=== PATIENT | male | born 1960 | race Caucasian/White ===

== ENCOUNTER 2023-03-21 10:38 | Emergency (ER) | payer BC, SELFPAY ==
[2023-03-21 10:50] VITALS: BP 123/85; PULSE 76; RESP 20; TEMP 36.8; O2SAT 98; BMI 32.6
--- NOTE | 2023-03-21 11:38 | CT_ITS ---
[address] [place], [place] [address] Patient Name: SHON SEO MRN: [id number] date: 1960 Sex: M Assigned Patient Location: ED.MAIN Current Patient Location: Accession/Order Number: [id number] Exam Date: 03/21/2023 12:37 Report Date: 03/21/2023 13:08 At the request of: LAURO ESTEBAN Procedure: CT abdomen pelvis w con EXAM: CT abdomen pelvis w con HISTORY: LUQ pain COMPARISON: None. TECHNIQUE: Axial CT imaging was performed through the abdomen and pelvis with intravenous contrast. Multiplanar reformats were performed. Dose reduction techniques were achieved by using automated exposure control and/or adjustment of mA and/or kV according to patient size and/or use of iterative reconstruction technique. FINDINGS: Lung bases: Lung bases are clear. No pleural effusion. GI upper: Small hiatal hernia. Liver: Normal size and contour. Gallbladder: No significant abnormality. No cholelithiasis. Biliary system: No intra or extrahepatic biliary ductal dilatation. Spleen: Normal size. Pancreas: Unremarkable. Adrenal glands: Normal adrenal glands. Kidneys/ureters: Normal contours. No hydronephrosis. No nephrolithiasis or ureterolithiasis. Mild bilateral perirenal fat stranding, nonspecific and can be due to infection/inflammation. Correlation with urinalysis is recommended. Vessels: No aneurysm. Lymph Nodes: No lymphadenopathy. Small bowel: No wall thickening or dilatation. Colon: No wall thickening or dilatation. Constipation. Appendix: No findings of appendicitis. Peritoneal cavity: No free fluid or pneumoperitoneum. Lower : Prostatomegaly. Correlation with PSA is recommended. The urinary bladder is unremarkable. Bones: No acute bony abnormality. Soft tissues: Small bilateral fat-containing inguinal hernia Additional findings: None. CT/CT abdomen pelvis w con IMPRESSION: Mild hiatal hernia. Mild bilateral perirenal fat stranding, nonspecific and can be due to infection/inflammation. Correlation with urinalysis is recommended. Electronically authenticated by: THERON RAMIREZ Date: 03/21/2023 13:08
--- NOTE | 2023-03-21 11:38 | ED.ABDPAIN1 ---
HPI - Abdominal Pain General Chief Complaint: Abdominal Pain Stated Complaint: ABDOMINAL PAIN Time Seen by Provider: 03/21/23 11:34 Source: patient Mode of arrival: walk-in Limitations: no limitations History of Present Illness HPI narrative: 63-year-old male presents for abdominal pain. It's in the left upper quadrant and he has not had nausea vomiting diarrhea or constipation. No fever. It started today. He had CABG about four weeks ago. No chest pain shortness of breath or back pain. Related Data Allergies Allergy/AdvReac Type Severity Reaction Status Date / Time No Known Drug Allergies Allergy Verified 03/21/23 10:50 Review of Systems ROS Narrative A ten point review of systems is negative except as noted above. PFSH PFSH Social History Smoking status: Light tobacco smoker Exam Narrative Exam Narrative: Nurses note and vital signs reviewed and patient is not hypoxic. General: The patient appears well and in no apparent distress. Patient is resting comfortably on cart. Skin: Warm, dry, no pallor noted. There is no rash noted. Head: Normocephalic, atraumatic Eye: Normal conjunctiva, no drainage Ears, Nose, Mouth, and Throat: oral mucosa is moist. Nares patent. Cardiovascular: Regular Rate and Rhythm Respiratory: Patient is in no distress, no accessory muscle use, lungs are clear to auscultation, no wheezing, rales or rhonchi Back: non-tender GI: Normal bowel sounds, no tenderness to palpation, no masses appreciated. No rebound, guarding, or rigidity noted. Musculoskeletal: The patient has no evidence of calf tenderness, no pitting edema, symmetrical pulses noted bilaterally Neurological: A&O, normal speech Psychiatric: Cooperative Constitutional Vital Signs, click to edit/add: Last Vital Signs Temp 98.3 F 03/21/23 10:50 Pulse 76 03/21/23 10:50 Resp 20 03/21/23 10:50 BP 123/85 03/21/23 10:50 Pulse Ox 98 03/21/23 10:50 O2 Del Method Room Air 03/21/23 10:50 Course Vital Signs Vital signs: Vital Signs Temperature 98.3 F 03/21/23 10:50 Pulse Rate 76 03/21/23 10:50 Respiratory Rate 20 03/21/23 10:50 Blood Pressure 123/85 03/21/23 10:50 Pulse Oximetry 98 03/21/23 10:50 Oxygen Delivery Method Room Air 03/21/23 10:50 Temperature 98.3 F 03/21/23 10:50 Pulse Rate 76 03/21/23 10:50 Respiratory Rate 20 03/21/23 10:50 Blood Pressure 123/85 03/21/23 10:50 Pulse Oximetry 98 03/21/23 10:50 Oxygen Delivery Method Room Air 03/21/23 10:50 MDM - Abdominal Pain MDM Narrative Medical decision making narrative: his workup including CAT scan abdomen is negative and he is able to be discharged home. Treatment diagnosis and follow-up were discussed with the patient. Differential Diagnosis Differential diagnosis: Likely abdominal pain and other (constipation, muscle strain) Lab Data Attestation: I reviewed the patient's lab results. Labs: Lab Results 03/21/23 Range/Units 11:45 WBC 8.5 (4.0-11.0) 10^3/uL RBC 4.55 L (4.70-6.10) 10^6/uL Hgb 13.2 L (14.0-18.0) g/dL Hct 41.4 L (42.0-54.0) % MCV 91.0 (80.0-94.0) fL MCH 29.0 (25.9-34.0) pg MCHC 31.9 (29.9-35.2) g/dL RDW 15.8 H (11.0-15.0) % Plt Count 233 (150-450) 10^3/uL MPV 10.0 (9.5-13.5) fL Neut % (Auto) 60.2 (43.0-75.0) % Lymph % (Auto) 20.6 (20.5-60.0) % [place] % (Auto) 9.5 (1.7-12.0) % Eos % (Auto) 8.8 H (0.9-7.0) % Baso % (Auto) 0.7 (0.2-2.0) % Neut # (Auto) 5.1 (1.4-6.5) 10^3/uL Lymph # (Auto) 1.8 (1.2-3.8) 10^3/uL [place] # (Auto) 0.8 (0.3-0.8) 10^3/uL Eos # (Auto) 0.8 H (0.0-0.7) 10^3/uL Baso # (Auto) 0.1 (0.0-0.1) 10^3/uL Abs Immat Gran (auto) 0.02 (0.00-0.03) 10^3/uL Imm/Tot Granulo (auto) 0.2 (0.0-0.5) % Sodium 136 (136-145) mmol/L Potassium 4.6 (3.5-5.1) mmol/L Chloride 103 (98-107) mmol/L Carbon Dioxide 27.2 (21.0-32.0) mmol/L Anion Gap 10.4 BUN 18.0 (7.0-18.0) mg/dL Creatinine 0.92 (0.70-1.30) mg/dL Est GFR ( Amer) >60 (>=60) Est GFR (Non-Af Amer) >60 (>=60) BUN/Creatinine Ratio 19.6 Glucose 96 (74-106) mg/dL Calcium 9.2 (8.5-10.1) mg/dL Imaging Data Chest x-ray: Radiologist's impression: Procedure: CT abdomen pelvis w con EXAM: CT abdomen pelvis w con HISTORY: LUQ pain COMPARISON: None. TECHNIQUE: Axial CT imaging was performed through the abdomen and pelvis with intravenous contrast. Multiplanar reformats were performed. Dose reduction techniques were achieved by using automated exposure control and/or adjustment of mA and/or kV according to patient size and/or use of iterative reconstruction technique. FINDINGS: Lung bases: Lung bases are clear. No pleural effusion. GI upper: Small hiatal hernia. Liver: Normal size and contour. Gallbladder: No significant abnormality. No cholelithiasis. Biliary system: No intra or extrahepatic biliary ductal dilatation. Spleen: Normal size. Pancreas: Unremarkable. Adrenal glands: Normal adrenal glands. Kidneys/ureters: Normal contours. No hydronephrosis. No nephrolithiasis or ureterolithiasis. Mild bilateral perirenal fat stranding, nonspecific and can be due to infection/inflammation. Correlation with urinalysis is recommended. Vessels: No aneurysm. Lymph Nodes: No lymphadenopathy. Small bowel: No wall thickening or dilatation. Colon: No wall thickening or dilatation. Constipation. Appendix: No findings of appendicitis. Peritoneal cavity: No free fluid or pneumoperitoneum. Lower : Prostatomegaly. Correlation with PSA is recommended. The urinary bladder is unremarkable. Bones: No acute bony abnormality. Soft tissues: Small bilateral fat-containing inguinal hernia Additional findings: None. IMPRESSION: Mild hiatal hernia. Mild bilateral perirenal fat stranding, nonspecific and can be due to infection/inflammation. Correlation with urinalysis is recommended. Electronically authenticated by: THERON RAMIREZ Date: 03/21/2023 13:08 Discharge Plan Discharge Chief Complaint: Abdominal Pain Clinical Impression: Abdominal pain Patient Disposition: Home, Self-Care Time of Disposition Decision: 13:27 Condition: Good Mode of Transportation: Private Vehicle Instructions: Abdominal Pain (ED) Stand Alone Forms: Portal Instructions Referrals: Physician,Non-Staff, MD [Primary Care Provider] - 1 week
[2023-03-21 12:01] LABS: Basophils Absolute Auto 0.1 10^3/uL (0.0-0.1); Basophils Percent Auto 0.7 % (0.2-2.0); Eosinophils Absolute Auto 0.8 10^3/uL (0.0-0.7); Eosinophils Percent Auto 8.8 % (0.9-7.0); Hematocrit 41.4 % (42.0-54.0); Hemoglobin 13.2 g/dL (14.0-18.0); Immature Granulocytes Abs Auto 0.02 10^3/uL (0.00-0.03); Immature Granulocytes Pct Auto 0.2 % (0.0-0.5); Lymphocytes Absolute Auto 1.8 10^3/uL (1.2-3.8); Lymphocytes Percent Auto 20.6 % (20.5-60.0); Mean Corpuscular HGB Conc 31.9 g/dL (29.9-35.2); Monocytes Absolute Auto 0.8 10^3/uL (0.3-0.8); Monocytes Percent Auto 9.5 % (1.7-12.0); Neutrophils Absolute Auto 5.1 10^3/uL (1.4-6.5); Neutrophils Percent Auto 60.2 % (43.0-75.0); Platelet Count 233 10^3/uL (150-450); Red Blood Count 4.55 10^6/uL (4.70-6.10); Red Cell Distribution Width 15.8 % (11.0-15.0); White Blood Count 8.5 10^3/uL (4.0-11.0)
[2023-03-21 12:17] LABS: Anion Gap 10.4; BUN Creatinine Ratio 19.6; Calcium 9.2 mg/dL (8.5-10.1); Carbon Dioxide 27.2 mmol/L (21.0-32.0); Chloride 103 mmol/L (98-107); Estimated GFR (African America >60 (>=60); Estimated GFR (Non-African Ame >60 (>=60); Glucose 96 mg/dL (74-106); Potassium 4.6 mmol/L (3.5-5.1); Sodium 136 mmol/L (136-145)
== END 2023-03-21 13:30 | disposition home or self-care (01) ==
PROVIDERS: Emergency Provider Emergency Medicine
DX: R10.12 Left upper quadrant pain (principal); Z95.1 Presence of aortocoronary bypass graft; F17.210 Nicotine dependence, cigarettes, uncomplicated; K44.9 Diaphragmatic hernia without obstruction or gangrene
CPT/HCPCS: 36415; 74177; 80048; 85025; 99284; Q9967